=== PATIENT | female | born 1935 | race Caucasian/White ===

== ENCOUNTER 2017-12-31 18:45 | Emergency (ER) | payer MEDICARE, OTHER ==
[2017-12-31 19:34] VITALS: BP 211/79; PULSE 90; RESP 18; TEMP 97.6; O2SAT 97
--- NOTE | 2017-12-31 20:42 | RADRPT ---
EXAM DATE/TIME: 12/31/2017 19:56 [place] COMPARISON: No previous studies available for comparison. INDICATIONS : Dizziness, headache RADIATION DOSE: 33.73 CTDIvol (mGy) MEDICAL HISTORY : Hypothyroidism. SURGICAL HISTORY : None. ENCOUNTER: Initial ACUITY: 1 day PAIN SCALE: 8/10 LOCATION: cranial TECHNIQUE: Multiple contiguous axial images were obtained of the head. Using automated exposure control and adj ustment of the mA and/or kV according to patient size, radiation dose was kept as low as reasonably a chievable to obtain optimal diagnostic quality images. DICOM format image data is available electro nically for review and comparison. FINDINGS: CEREBRUM: The ventricles are normal for age. No evidence of midline shift, mass lesion, hemorrhage or acute in farction. No extra-axial fluid collections are seen. POSTERIOR FOSSA: The cerebellum and brainstem are intact. The 4th ventricle is midline. The cerebellopontine angle i s unremarkable. EXTRACRANIAL: The visualized portion of the orbits is intact. Right parietal soft tissue nodule of the scalp presen t, measures approximately 13 mm in size. SKULL: The calvaria is intact. No evidence of skull fracture. CONCLUSION: No acute intracranial abnormality. Soft tissue nodule of the right parietal scalp noted, probably a b enign sebaceous cyst but please correlate clinically. Elliott Stephens MD on December 31, 2017 at 20:39 Board Certified Radiologist. This report was verified electronically.
[2017-12-31] MEDS ORDERED: MELO7.5T27 PO (21:09)
[2017-12-31] MEDS ORDERED: LISI2.5T3 PO (21:09)
[2017-12-31] MEDS ORDERED: AMLO2.5T PO (21:09)
[2017-12-31] MEDS ORDERED: LEVO100T5 PO (21:09)
[2017-12-31 21:34] LABS: AUTOMATED NEUTROPHIL # 5.6 TH/MM3 (1.8-7.7); BASOPHIL % 0.5 % (0.0-2.0); EOSINOPHIL # 0.2 TH/MM3 (0-0.4); HEMATOCRIT 33.7 % (35.0-46.0); HEMOGLOBIN 10.8 GM/DL (11.6-15.3); LYMPH % 26.1 % (9.0-44.0); LYMPHOCYTE # 2.3 TH/MM3 (1.0-4.8); MEAN CELL VOLUME 83.6 FL (80.0-100.0); MEAN CORPUSCULAR HEMOGLOBIN 26.7 PG (27.0-34.0); MEAN CORPUSCULAR HGB CONC 31.9 % (32.0-36.0); MEAN PLATELET VOLUME 8.1 FL (7.0-11.0); MONO % 7.8 % (0.0-8.0); MONOCYTE # 0.7 TH/MM3 (0-0.9); NEUT % 63.6 % (16.0-70.0); PLATELET COUNT 407 TH/MM3 (150-450); RED BLOOD COUNT 4.03 MIL/MM3 (4.00-5.30); RED CELL DISTRIBUTION WIDTH 17.1 % (11.6-17.2); WHITE BLOOD COUNT 8.7 TH/MM3 (4.0-11.0)
[2017-12-31 21:41] LABS: INTERNATIONAL NORMALIZED RATIO 1.2 RATIO
[2017-12-31 21:43] LABS: ALBUMIN 3.1 GM/DL (3.4-5.0); AST (GOT) 17 U/L (15-37); BLOOD UREA NITROGEN 9 MG/DL (7-18); CHLORIDE 101 MEQ/L (98-107); CREATININE 0.61 MG/DL (0.50-1.00); GLOMERULAR FILTRATION RATE 94 ML/MIN (>89); GLUCOSE,RANDOM 93 MG/DL (74-106); SODIUM (NA) 136 MEQ/L (136-145)
[2017-12-31 21:45] LABS: ALT (GPT) 19 U/L (10-53)
[2017-12-31 21:46] LABS: ALKALINE PHOSPHATASE 120 U/L (45-117); TOTAL BILIRUBIN ADULT 0.2 MG/DL (0.2-1.0); TOTAL PROTEIN 7.3 GM/DL (6.4-8.2)
--- NOTE | 2017-12-31 21:51 | PD ---
HPI Chief Complaint: Dizziness Time Seen by Provider: 21:13 Travel History International Travel<30 days: No Contact w/Intl Traveler<30days: No Traveled to known affect area: No History of Present Illness HPI 82-year-old female reports hypertension at home at about 180/80. Normally her blood pressure is 120/60. She reports his amlodipine the lisinopril however has been intermittently noncompliant lately because she believes it to cause dizziness. She reports a history of hydrochlorothiazide usage with benefit at 12.5 mg daily. Since moving to [facility] she was switched to the lisinopril and amlodipine wonders if she should switch back. No chest pain or shortness of breath. No loss of consciousness. No nausea vomiting. No fever. PFSH Past Medical History Arthritis: Yes Hypertension: Yes Thyroid Disease: Yes (HYPO) Tetanus Vaccination: Unknown Influenza Vaccination: No Past Surgical History Appendectomy: Yes Cholecystectomy: Yes Social History Alcohol Use: Yes (occasionally) Tobacco Use: No Substance Use: No Allergies-Medications (Allergen,Severity, Reaction): Coded Allergies: No Known Allergies (Unverified , 12/31/17) Reported Meds & Prescriptions Reported Meds & Active Scripts Active Hydrochlorothiazide 12.5 Mg Cap 12.5 Mg PO DAILY Reported Meloxicam 7.5 Mg Tab 7.5 Mg PO DAILY Levothyroxine (Levothyroxine Sodium) 100 Mcg Tab 100 Mcg PO DAILY Lisinopril Unknown Strength Tab Unknown Dose PO DAILY Amlodipine (Amlodipine Besylate) Unknown Strength Tab Unknown Dose PO DAILY Review of Systems Except as stated in HPI: all other systems reviewed are Neg General / Constitutional: No: Fever Physical Exam Narrative GENERAL: Well-nourished well-developed 82-year-old female pleasant no acute distress Vital Signs Date Time Temp Pulse Resp B/P (MAP) Pulse Ox O2 Delivery O2 Flow Rate FiO2 12/31/17 22:24 12/31/17 21:53 67 18 150/67 (94) 99 Room Air 12/31/17 19:34 97.6 90 18 211/79 (123) 97 SKIN: Warm and dry. HEAD: Atraumatic. Normocephalic. EYES: Pupils equal and round. No scleral icterus. No injection or drainage. ENT: No nasal bleeding or discharge. Mucous membranes pink and moist. NECK: Trachea midline. No JVD. CARDIOVASCULAR: Regular rate and rhythm. RESPIRATORY: No accessory muscle use. Clear to auscultation. Breath sounds equal bilaterally. GASTROINTESTINAL: Abdomen soft, non-tender, nondistended. Hepatic and splenic margins not palpable. MUSCULOSKELETAL: Extremities without clubbing, cyanosis, or edema. No obvious deformities. NEUROLOGICAL: Awake and alert. No obvious cranial nerve deficits. Motor grossly within normal limits. Five out of 5 muscle strength in the arms and legs. Normal speech. PSYCHIATRIC: Appropriate mood and affect; insight and judgment normal. Data Data Last Documented VS Vital Signs Date Time Temp Pulse Resp B/P (MAP) Pulse Ox O2 Delivery O2 Flow Rate FiO2 12/31/17 22:24 12/31/17 21:53 67 18 99 Room Air 12/31/17 19:34 97.6 Orders Orders Complete Blood Count With Diff (12/31/17 19:37) Comprehensive Metabolic Panel (12/31/17 19:37) Prothrombin Time / Inr (Pt) (12/31/17 19:37) Act Partial Throm Time (Ptt) (12/31/17 19:37) Ct Brain W/O Iv Contrast(Rout) (12/31/17 19:37) Ed Discharge Order (12/31/17 22:20) Labs Laboratory Tests Test 12/31/17 20:49 White Blood Count 8.7 TH/MM3 Red Blood Count 4.03 MIL/MM3 Hemoglobin 10.8 GM/DL Hematocrit 33.7 % Mean Corpuscular Volume 83.6 FL Mean Corpuscular Hemoglobin 26.7 PG Mean Corpuscular Hemoglobin Concent 31.9 % Red Cell Distribution Width 17.1 % Platelet Count 407 TH/MM3 Mean Platelet Volume 8.1 FL Neutrophils (%) (Auto) 63.6 % Lymphocytes (%) (Auto) 26.1 % Monocytes (%) (Auto) 7.8 % Eosinophils (%) (Auto) 2.0 % Basophils (%) (Auto) 0.5 % Neutrophils # (Auto) 5.6 TH/MM3 Lymphocytes # (Auto) 2.3 TH/MM3 Monocytes # (Auto) 0.7 TH/MM3 Eosinophils # (Auto) 0.2 TH/MM3 Basophils # (Auto) 0.0 TH/MM3 CBC Comment DIFF FINAL Differential Comment Prothrombin Time 12.0 SEC Prothromb Time International Ratio 1.2 RATIO Activated Partial Thromboplast Time 25.8 SEC Blood Urea Nitrogen 9 MG/DL Creatinine 0.61 MG/DL Random Glucose 93 MG/DL Total Protein 7.3 GM/DL Albumin 3.1 GM/DL Calcium Level 9.0 MG/DL Alkaline Phosphatase 120 U/L Aspartate Amino Transf (AST/SGOT) 17 U/L Alanine Aminotransferase (ALT/SGPT) 19 U/L Total Bilirubin 0.2 MG/DL Sodium Level 136 MEQ/L Potassium Level 3.8 MEQ/L Chloride Level 101 MEQ/L Carbon Dioxide Level 27.0 MEQ/L Anion Gap 8 MEQ/L Estimat Glomerular Filtration Rate 94 ML/MIN MDM Medical Decision Making Medical Screen Exam Complete: Yes Emergency Medical Condition: Yes Medical Record Reviewed: Yes Differential Diagnosis Medication side effect, hypertension, hypertensive encephalopathy Narrative Course CBC & BMP Diagram 12/31/17 20:49 Total Protein 7.3, Albumin 3.1 L, Calcium Level 9.0, Alkaline Phosphatase 120 H , Aspartate Amino Transf (AST/SGOT) 17, Alanine Aminotransferase (ALT/SGPT) 19, Total Bilirubin 0.[address] 12/31/171936 Signed Impressions: Service Date/Time: Sunday, December 31, 2017 19:56 - CONCLUSION: No acute intracranial abnormality. Soft tissue nodule of the right parietal scalp noted , probably a benign sebaceous cyst but please correlate clinically. Elliott Stephens MD Overall workup is essentially unremarkable. Will provide the patient with a course of Hydrocort thiazide. She will discontinue lisinopril and amlodipine in order to attempt to glean benefit from the hydrochlorthiazide. She will follow-up with her primary care provider this week. Return precautions discussed. Diagnosis Primary Impression: Dizziness Additional Impression: Hypertension Qualified Codes: I10 - Essential (primary) hypertension Referrals: Primary Care Physician as needed Med/Other Pt SpecificInfo: Prescription(s) given Scripts Hydrochlorothiazide (Hydrochlorothiazide) 12.5 Mg Cap 12.5 MG PO DAILY, #30 CAP 0 Refills Prov: Eligio Rhodes MD 12/31/17 Disposition: 01 DISCHARGE HOME Condition: Stable Eligio Rhodes MD Dec 31, 2017 21:51
[2017-12-31 21:53] VITALS: BP 150/67; PULSE 67; RESP 18; O2SAT 99
[2017-12-31] MEDS ORDERED: HYDR12.57 PO (22:16)
== END 2017-12-31 22:36 | disposition home or self-care (01) ==
LOC: NEPC 18:45
DX: R42 Dizziness and giddiness (principal); I10 Essential (primary) hypertension; E03.9 Hypothyroidism, unspecified
CPT/HCPCS: 70450; 80053; 85025; 85610; 85730; 99284